=== PATIENT | male | born 1955 | race Caucasian/White ===

== ENCOUNTER 2018-09-02 14:15 | Observation (INO) ==
[2018-09-02 15:03] LABS: Basophils # 0.1 10*3/uL (0.0-0.2); Basophils % 0.8 % (0.0-0.8); Eosinophils # 0.1 10*3/uL (0.0-0.87); Eosinophils % 1.2 % (0.00-10.9); Hematocrit 46.9 VOL% (42.0-52.0); Hemoglobin 15.6 GM/DL (14.0-18.0); Immature Granulocytes % 0.2 %; Immature Granulocytes Absolute 0.02 #; Lymphocytes % 20.8 % (21.2-54.2); Mean Corpuscular HGB Conc 33.3 GM/DL (32-36); Mean Corpuscular Hemoglobin 28 PG (27-34); Mean Corpuscular Volume 84.8 FL (87-102); Mean Platelet Volume 10.5 FL (9.6-12.0); Monocytes # 0.8 10*3/uL (0.11-0.8); Monocytes % 8.6 % (1.7-12.7); Neutrophils # 6.7 10*3/uL (1.4-7.4); Neutrophils % 68.4 % (38.7-73.9); Platelet Count 292 T/CUMM (130-400); Red Blood Count 5.53 MC/CUMM (3.8-5.5); White Blood Count 9.8 T/CUMM (4-12)
[2018-09-02 15:13] LABS: Partial Thromboplastin Time 26.6 SECS (0-40)
[2018-09-02 15:24] LABS: Alanine Aminotransferase 35 U/L (16-61); Albumin 4.4 G/DL (3.4-5.0); Alkaline Phosphatase 69 U/L (45-117); Aspartate Amino Transferase 12 U/L (0-37); Blood Urea Nitrogen 16 MG/DL (7-18); Calcium 9.2 MG/DL (8.5-10.1); Glucose 246 MG/DL (74-106); Osmolality,Calculated 276.2 MOS/KG (273-304); Potassium 3.8 MMOL/L (3.5-5.1); Sodium 134 MMOL/L (136-145); Total Protein 8.3 G/DL (6.4-8.3)
[2018-09-02 15:51] LABS: Apearance,Urine CLEAR (Clear); Bilirubin,Urine Negative (Negative); Blood, Urine Negative (Negative); Glucose,Urine (UA) >=500 mg/dL (Negative); Ketones,Urine Negative (Negative); Mucus,Urine Occasional /LPF (Occasional); Nitrite,Urine Negative (Negative); Protein,Urine 100 MG/DL; RBC,Urine 1 /HPF (0-4); Squamous Epithelial Cell,Urine Occasional /HPF (0-10); Urine Color Yellow (Yellow); Urine Specific Gravity 1.037 (1.001-1.035); Urine Urobilinogen < 2.0 EU/DL (0.2-1.0); WBC,Urine 2 /HPF (0-6)
[2018-09-02 16:08] LABS: Barbiturates Screen,Urine Negative (Negative); Benzodiazepines Screen,Urine Negative (Negative); Cannabinoid Screen,Urine Negative (Negative); Opiate Screen,Urine Negative (Negative); Phencyclidine Screen,Urine Negative (Negative)
[2018-09-02] MEDS ORDERED: DEXTROSE 50% 25 GM/50 ML VIAL IV PRN (16:23)
[2018-09-02] MEDS ORDERED: LABETALOL 20 MG/4 ML SYRINGE IV PRN (16:23)
[2018-09-02] MEDS ORDERED: GLUCAGON 1 MG VIAL IM PRN (16:23)
[2018-09-02] MEDS ORDERED: ACETAMINOPHEN 325 MG TABLET PO PRN (16:23)
[2018-09-02] MEDS ORDERED: INSULIN ASPART PROTAMINE/ASPART 70/30 100 UNIT/ML SUBCUT SCH (18:00)
[2018-09-02] MEDS: ASPIRIN 325 MG TABLET PO SCH (18:17)
[2018-09-02] MEDS: INSULIN REGULAR 100 UNIT/ML SUBCUT SCH ×2 (18:39→21:33)
[2018-09-02] MEDS ORDERED: ATORVASTATIN 80 MG TABLET PO SCH (21:00)
[2018-09-02] MEDS ORDERED: ENOXAPARIN 40 MG/0.4 ML SYRINGE SUBCUT SCH (21:00)
[2018-09-02] MEDS: QUINAPRIL 20 MG TABLET PO SCH (21:33)
[2018-09-02] MEDS: SODIUM CHLORIDE 0.9% 1,000 ML IV SCH (23:20)
[2018-09-03] MEDS: SODIUM CHLORIDE 0.9% 1,000 ML IV SCH ×2 (03:53→06:16)
[2018-09-03 05:07] LABS: Risk Ratio 3.35; VLDL CHOLESTEROL 27.8 MG/DL
[2018-09-03] MEDS ORDERED: metFORMIN 500 MG TABLET PO SCH (08:00)
[2018-09-03] MEDS ORDERED: glyBURIDE 2.5 MG TABLET PO SCH (08:00)
[2018-09-03] MEDS: INSULIN REGULAR 100 UNIT/ML SUBCUT SCH ×2 (08:58→12:47)
[2018-09-03] MEDS ORDERED: VERAPAMIL SR 240 MG TABLET PO SCH (09:00)
[2018-09-03] MEDS ORDERED: INSULIN ASPART PROTAMINE/ASPART 70/30 100 UNIT/ML SUBCUT SCH (09:00)
[2018-09-03] MEDS: ASPIRIN 325 MG TABLET PO SCH (09:02)
[2018-09-03] MEDS: QUINAPRIL 20 MG TABLET PO SCH (09:02)
[2018-09-03] MEDS ORDERED: VERAPAMIL SR 180 MG TABLET PO SCH (12:06)
[2018-09-03 13:05] VITALS: BP 164/107
== END 2018-09-03 15:10 | disposition home or self-care (01) ==
LOC: N.ED 14:15 → N.EDINP 14:15 → N.4E 17:34
PROVIDERS: ADMIT Hospitalist; ATTEND Hospitalist